=== PATIENT | female | born 1970 | race Two or more races ===

== ENCOUNTER 2024-09-13 01:57 | Inpatient (IN) | payer BC, SELFPAY ==
[2024-09-13] VITALS (8 sets, daily range): BP systolic 112–173; BP diastolic 69–95; PULSE 62–93; RESP 16–95; TEMP 36.1–36.8; O2SAT 94–99; BMI 31.9; BMI 32.5
--- NOTE | 2024-09-13 02:18 | XR_ITS ---
Examination: CT abdomen and pelvis without contrast. Coronal 3-D reconstructions. Sagittal 2-D reconstructions. Date and time of exam:September 13, 2024 0253 hrs. Comparison January 12, 2024 Indications: Onset abdominal pain today, history left abdominal pain January 2024, history kidney stones, 11 mm lower pole left renal calculus, moderate bilateral renal parenchymal scar formation on CT abdomen pelvis January 12, 2024 CTDI: vol (mGy): 12.91 DLP: (mGycm): 769 Technique: Axial images of the abdomen have been obtained, 3 mm slice thickness Intravenous contrast material has not been administered. Low dose protocols were performed. One or more of the following dose reduction techniques were used; automated exposure control, adjustment of the mA and/or KV according to patient size, use of iterative reconstruction technique. Findings: Liver is irregular in contour, no focal liver lesions Absent gallbladder Spleen not enlarged No pancreatic or adrenal mass Significant bilateral renal parenchymal scar formation No renal or ureteral calculi, no hydronephrosis Multiple abnormal fluid and air distended small bowel loops with edema surrounding some of the small bowel loops for instance axial image 116 Normal appendix No diverticulitis No pelvic mass Contracted urinary bladder Advanced degenerative disc disease L4-L5, L5-S1 Impression: Significant bilateral renal parenchymal scar formation, no hydronephrosis or ureteral calculi Small bowel obstruction pattern, consider Gastrografin small bowel series follow-up
--- NOTE | 2024-09-13 02:19 | PD.EDRME ---
Rapid Medical Screening Exam RME Arrival date/time: 09/13/24 01:57 54-year-old female past medical history of gastric bypass presents emergency department complaining of diffuse abdominal pain. Chief Complaint: Abdominal Pain Time Seen by Provider: 09/13/24 02:12 Vital signs: Vital Signs Temperature 97.7 F 09/13/24 02:06 Pulse Rate 62 09/13/24 02:06 Respiratory Rate 18 09/13/24 02:06 Blood Pressure 173/95 H 09/13/24 02:06 Pulse Oximetry (%) 97 09/13/24 02:06 Oxygen Delivery Method Room Air 09/13/24 02:06 Vital signs reviewed by provider: Yes
[2024-09-13 02:48] LABS: Collection Type, Urine Clean Catch
[2024-09-13 03:09] LABS: Bilirubin,Urine Negative (Negative); Blood,Urine Trace (Negative); Color,Urine Yellow (Lt Yel-Yel); Glucose, Urine Negative (Negative); Ketones,Urine Negative (Negative); Leukocyte Esterase,Urine Positive (Negative); Nitrite,Urine Negative (Negative); PH,Urine 5.5 (5.0-7.0); Protein,Urine 1+ (Neg - Trace); RBC,Urine 42 /hpf (0-3); Specific Gravity,Urine 1.033 (1.001-1.035); Squamous Epithelial Cell,Urine 2 /hpf (0-5); WBC,Urine 31 /hpf (0-5)
[2024-09-13 03:18] LABS: Basophils % (Auto) 0 % (0-2.5); Eosinophils # (Auto) 0.1 Thou/mm3 (0.0-0.5); Eosinophils % (Auto) 1 % (0-10); Hematocrit 40.1 % (36.0-46.0); Hemoglobin 13.4 g/dL (12.0-16.0); Immature Granulocytes % (Auto) 0 % (0-0); Immature Granulocytes Auto 0.04 Thou/mm3 (0.00-0.00); Lymphocytes # (Auto) 2.4 Thou/mm3 (1.0-4.8); Lymphocytes % (Auto) 18 % (10-50); Mean Corpuscular HGB Conc 33.4 g/dl (31.0-37.0); Mean Corpuscular Hemoglobin 30.1 pg (25.0-35.0); Mean Corpuscular Volume 90 fL (80-100); Monocytes # (Auto) 0.7 Thou/mm3 (0.0-0.8); Monocytes % (Auto) 6 % (0-12); Neutrophils # (Auto) 9.9 Thou/mm3 (1.8-7.7); Neutrophils % (Auto) 75 % (37-80); Nucleated Red Blood Cell % 0 /100 WBC (0); Platelet Count 237 Thou/mm3 (140-440); RDW Standard Deviation 42.5 fL (36.4-46.3); Red Blood Count 4.45 Miln/mm3 (4.00-5.20); White Blood Count 13.2 Thou/mm3 (3.6-11.0)
[2024-09-13 03:28] LABS: Clarity,Urine Hazy (Clear/Hazy); Culture Indicated,Urine Yes
[2024-09-13 03:32] LABS: Alanine Aminotransferase 23 U/L (10-49); Albumin, Serum 4.3 gm/dL (3.5-5.0); Albumin/Globulin Ratio 1.2 (1.2-2.2); Alkaline Phosphatase 147 U/L (46-116); Anion Gap 6 (7-16); Aspartate Amino Transferase 30 U/L (0-34); BUN/Creatinine Ratio 14 Ratio (12-20); Bilirubin,Total 0.3 mg/dL (0.3-1.2); Blood Urea Nitrogen 18 mg/dL (9-23); Calcium 10.1 mg/dL (8.3-10.6); Calcium (Corrected) 10.1 mg/dL (8.5-10.1); Carbon Dioxide 26.3 mMol/L (20.0-31.0); Chloride 107 mMol/L (98-107); Creatinine (Component) 1.3 mg/dL (0.6-1.3); Estimated Creatinine Clearance 57.8 mL/min (>60); Globulin 3.6 gm/dL (2.3-3.5); Glucose 159 mg/dL (74-106); Lipase 79 U/L (12-53); Osmolality,Calculated 282 (275-295); Potassium 4.6 mMol/L (3.4-5.1); Sodium 139 mMol/L (136-145); Total Protein 7.9 gm/dL (5.7-8.2); eGFR 49 See Note
--- NOTE | 2024-09-13 03:47 | PRELIM_ITS ---
CT scan of the abdomen and pelvis without intravenous contrast (axial sections with sagittal and tony nal reformats). September 13, 2024 at 0253 hours Clinical History: Abdominal pain. Comparison: No prior study is available for comparison. Findings:The lung bases are clear.The liver, pancreas, spleen, ki dneys and adrenals are unremarkable on this noncontrast study.Status post cholecystectomy. No biliary duct dilation.No evidence of bowel obstruction. The appendix is within normal limits.There is no mes enteric or retroperitoneal adenopathy.The urinary bladder is nondistended, limited evaluation. There is no free fluid or free air.No acute fractures. Chronic disc disease at L4-L5 and L5-S1.Scattered ai r-fluid levels in the small bowel associated with mild dilation and transition point in the right low er quadrant at the level of the mildly wall thickened small bowel loop associated with peripheral mes enteric fat stranding.Small hiatus hernia.Status post gastric bypass surgery.Impression:Findings are compatible with developing small bowel obstruction. Transition point is at the level of an inflamed s mall bowel loop, consider ischemic enteritis in the differential diagnosis.Discussion Details: Resul ts verbally communicated to : Dr. Figueroa at 03:40 AM 09/13/2024 Report Electronically Signed By: Kiah Carosn 09/13/2024 3:47:36 AM [EST]
--- NOTE | 2024-09-13 05:14 | EDNOTE_ITS ---
ED Abdominal Pain RME/HPI General Chief Complaint: Abdominal Pain Stated complaint: Abdominal Pain Time seen by provider: 09/13/24 02:12 Arrival date/time: 09/13/24 01:57 RME / HPI RME / HPI narrative: Chief complaint: 09/13/24 01:57 54-year-old female past medical history of gastric bypass presents emergency department complaining of diffuse abdominal pain. HPI: Ms. Pappas is a 54-year-old female with past medical history of gastric bypass in 2008, cholecystectomy and hysterectomy in 2011, depression, nephrolithiasis, essential hypertension, [id number] diabetes mellitus and obesity, who came in with acute onset epigastric pain with started around 6 PM on 09/12/2024. Patient had a bowel movement around 7 PM, and consumed a few snacks between 7 PM and midnight. Her pain progressively got worse over the night and prompted her to come to the ED. She is able to tolerate liquids comfortably, however not able to tolerate solid foods. She denies any nausea or episodes of vomiting, denies constipation and diarrhea. She also denies any fevers chills, no diaphoresis or systemic symptoms. She has never experienced any symptoms in the past, and has been in fairly good health since her surgeries 10 years ago. She is compliant with all her medications. Medication list: Ozempic weekly Ramipril 10 mg twice daily Trintellix daily Allergies: Compazine -angioedema Social history: Tobacco?Use:?Denies ETOH?Use:?Denies Drug?Note:?Denies Social?History?Note:?Lives?at home, independent ADLs Family history: Mother - positive for cardiac issues. Maternal grandfather had colon cancer. Related Data Home Medications ?Medication ?Instructions ?Recorded ?Confirmed ramipril 10 mg capsule 10 mg PO BID 10/15/22 05/26/24 vortioxetine 20 mg tablet 20 mg PO QDAY 10/20/22 05/26/24 (Trintellix) semaglutide 0.25 mg or 0.5 mg (2 0.25 mg subcut QWEEK 11/26/22 05/26/24 mg/3 mL) subcutaneous pen injector (Ozempic) potassium citrate 10 mEq (1,080 10 meq PO DAILY 05/02/24 05/26/24 mg) tablet,extended release Allergies Allergy/AdvReac Type Severity Reaction Status Date / Time prochlorperazine edisylate Allergy Severe THROAT Verified 05/26/24 09:54 MARTIN Review of Systems Review of Systems Narrative Review of Systems: GENERAL: Denies fevers/chills or diaphoresis. HEENT: Denies headache or visual/hearing changes. Denies nasal discharge. NEURO: Denies unusual weakness or difficulty speaking. CARDIO: Denies chest pain or palpitations. PULM: Denies SOB, coughing, or wheezing. GI: Epigastric abdominal pain, denies N/V/C/D. Reports having BMs. Patient has never had a colonoscopy URO: Denies burning/itching/pain/urinary changes. 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 PSYCH: Cooperative, pleasant mood & affect. The rest of the review of systems is otherwise negative. ED Exam Narrative Physical exam: Constitutional Alert, oriented x4, uncomfortable, obese HEENT Vision grossly intact. Patent nares. Trachea midline. Respiratory Chest normal on inspection and clear to auscultation bilaterally. Cardiovascular S1 and S2 audible, RRR. No murmurs or carotid bruit. No gross JVD. Abdominal Soft, epigastric and RUQ tenderness to palpation. BS + Genitourinary No bladder tenderness, no flank pain. Normal to palpation. Musculoskeletal Extremities tone within normal limits. No LE edema. Neurological CN II - XII grossly intact. Extremity motor and sensation grossly intact. Skin Warm, dry and intact. No apparent lesions. Psychiatric Patient has a good affect, is cooperative. Course Quality Measures VTE prophylaxis Orders Category Date Time Status NPO NOW Care 09/13/24 05:28 Active Diet NPO (NOW) Diet 09/13/24 05:[address] abdomen pelvis wo con Stat Exams 09/13/24 02:18 Taken XR small bowel single contrast Stat Exams 09/13/24 05:26 Ordered CBC Stat Lab 09/13/24 03:03 Completed CMP [Comprehensive Metabolic Panel] Stat Lab 09/13/24 03:03 Completed Lipase Stat Lab 09/13/24 03:03 Completed Urinalysis, C/S if Indicated Stat Lab 09/13/24 02:40 Completed Urine Culture Stat Lab 09/13/24 02:40 Received Ketorolac Inj [Toradol Inj] Med 09/13/24 05:26 Discontinued 15 mg IVP X1 ONE Ondansetron Inj [Zofran Inj] Med 09/13/24 05:29 Once 4 mg IV PRN ONE Sodium Chloride 0.9% 1000 ml [Ns] 1,000 ml Med 09/13/24 05:27 Active IV 125 mls/hr Vital Signs Vital signs: Vital Signs Temperature 97.7 F 09/13/24 02:06 Pulse Rate 62 09/13/24 02:06 Respiratory Rate 18 09/13/24 02:06 Blood Pressure 173/95 H 09/13/24 02:06 Pulse Oximetry (%) 97 09/13/24 02:06 Oxygen Delivery Method Room Air 09/13/24 02:06 Abdominal Pain MDM Patient data External records reviewed:: PCP records Clinical information provided by:: patient Social determinants that could affect healthcare access:: none Patient has the following chronic illnesses:: past medical history of gastric bypass in 2008, cholecystectomy and hysterectomy in 2011, nephrolithiasis, depression, essential hypertension, [id number] diabetes mellitus and obesity How is presenting disease/condition affected by chronic disease/condition?: uneffected by Evaluation data The following diagnostics were reviewed and interpreted by me:: lab results, radiology exam(s) and EKG tracing(s) Lab and/or radiology exams considered but not ordered:: CEA Interpretation Summary: Patient presented with acute epigastric abdominal pain. CT abdomen pelvis consistent with SBO. Medications / Prescriptions Medications or Prescriptions considered but not ordered:: Morphine for pain Medication administrations:: Medication Administration History Sodium Chloride (Ns) 1,000 mls @ 125 mls/hr IV .Q8H ONE Stop: 09/13/24 13:26 Ondansetron HCl (Ondansetron Inj 2 Mg/Ml Inj 2 Ml) 4 mg IV PRN ONE; Protocol Stop: 09/13/24 05:30 Discontinued Medications Ketorolac Tromethamine (Ketorolac Inj 30 Mg/Ml Vial) 15 mg IVP X1 ONE Stop: 09/13/24 05:27 Continue Consultations Consultation(s) initiated? (list below): No Consultation #1 (Physician, Specialty, Details): Pending Gen Surg consult if no resolution Diagnosis Differential diagnosis abdominal pain: abdominal pain and small bowel obstruction Most likely diagnosis given after review of the tests above:: CT abdomen pelvis consistent with SBO. Plan: XR small bowel series ordered, anticipate resolution with Gastrografin contrast. Admission Indicated Admission indicated?: indicated Admission Request Was there a request for admission?: Yes Admission Attestation Admission request attestation: Discussed case with Dr. aMta from Hospitalist service regarding admission. Discussed patients ED course, exam findings, labs, and radiology results. The Hospitalist team agrees to accept the patient for admission and further management. Disposition Plan Disposition Plan: Admit Discharge Attestation Discharge Attestation: CT abdomen pelvis consistent with SBO. Plan: XR small bowel series ordered, anticipate resolution with Gastrografin contrast. Discharge Plan Plan Patient Disposition: Admit Acute Care w/in Hospital Patient condition on transfer: Stable Prescriptions/Referrals Prescriptions/Med Rec: No Action ramipril 10 mg capsule 10 mg PO BID Trintellix 20 mg Tablet 20 mg PO QDAY Ozempic 0.25 mg or 0.5 mg (2 mg/3 mL) Pen Injector 0.25 mg SUBCUT QWEEK Rx Instructions: for 4 weeks potassium citrate 10 mEq (1,080 mg) tablet extended release 10 meq PO DAILY Referrals: Sher Chakraborty MD [Primary Care Provider] - In 1 week Problem List Clinical Impression: Small bowel obstruction Patient/Caregiver Discharge Instructions Print Language: Syriac Stand Alone Forms: Sherine Award Info., Patient Portal Info Letter
--- NOTE | 2024-09-13 05:26 | XR_ITS ---
Examination: Small bowel series with KUB Abdomen supine 3 views Exam date and time: September 13, 2024 0921 hours INDICATIONS: Abdominal pain and distention this week, small bowel obstruction pattern on CT abdomen pelvis September 13, 2024 0253 hours TECHNIQUE AND FINDINGS: AP portable supine abdomen immediate post introduction 120 cc Gastrografin Dilated small bowel loops noted AP portable supine abdomen films at 30 minutes and 1 hour demonstrate distended small bowel loops IMPRESSION: Small bowel obstruction pattern Recommend follow-up films 10:00 AM, 12 noon, 2:00 PM
[2024-09-13] MEDS: ONDANSETRON INJ 2 MG/ML INJ 2 ML 4 MG IV ×3 (05:42→13:38)
[2024-09-13] MEDS: KETOROLAC INJ 30 MG/ML VIAL 15 MG IVP (05:44)
[2024-09-13] MEDS: SODIUM CHLORIDE 0.9% 1000 ML 1,000 ML 125 ML IV (05:49)
--- NOTE | 2024-09-13 07:19 | PC.NURSE ---
RECEIVED REPORT AND ASSUMED CARE OF PATIENT. PATIENT SLEEPING BUT RESPONDS APPROPRIATELY TO NAME AND STATES PAIN IS CURRENTLY TOLERABLE.
--- NOTE | 2024-09-13 08:40 | PD.RESHP ---
Documentation for date of: 09/13/24 HPI History of Present Illness Chief complaint: Abdominal Pain for 2 days History of present illness: HPI: A 54-year-old female patient with past medical history of hypertension, diabetes mellitus, gastric bypass surgery, history of anxiety and depression, history of cholecystectomy and hysterectomy presented to the ED due to acute onset abdominal pain that started on 11 September after she ate significant amount of corn. After that patient felt bloated and she was not able to that any gas or stool however on the 12 September patient had a bowel movement stool was formed with no pain or vomiting. Patient denied any nausea or vomiting. even though the patient had a bowel movement however patient was still complaining of persistent abdominal pain located at the epigastric area 01/13 with no radiation she feels Nausous however no vomiting. Patient reported that she is passing gas this morning but no stool. Home medications: Trintellix, Ozempic, ramipril, multivitamins ED course: At the ED patient was vitally stable however her blood pressure was 178/95, labs was only significant for WBCs of 13.2, hemoglobin stable at 13, serum creatinine is 1.3 which is at her baseline apparently patient has CKD and diagnosed with EGFR of 49. Urinalysis was only significant for 14 RBCs, 31 WBCs, not complain of any urinary tract symptoms. While I am taking history from the patient patient started to experience episodes of anxiety and he was not able to any further history at this time, I prescribed the patient 1 dose of Ativan 1 mg also to take further details and subsequent time. PMH: As above Social hx: Alcohol: Denied Tobacco: Denied Illicit drugs: Denied Allergies: Prochlorperazine resulted in angioedema Review of Systems Review of Systems Systems Reviewed: All systems reviewed, normal except as documented Exam Vital Signs Temp Pulse Resp BP Pulse Ox O2 Del Method 97.7 F 62 19 144/89 H 99 Room Air 09/13/24 02:06 09/13/24 05:51 09/13/24 05:51 09/13/24 05:51 09/13/24 05:51 09/13/24 05:51 Narrative Exam GEN: AOx3, able to speak full sentences HEENT: NC/AC, oral mucosa moist, neck supple CVS: RRR, S1-S2 present, no murmurs appreciated RESP: CTAB GI: Surgical scars, soft,non distended, upper abdominal tenderness, normal bowel sounds for 1 minute MSK: able to move all 4 limbs, no lower extremity edema SKIN: warm 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 Results: Labs 09/13/24 03:03 09/13/24 03:03 Labs: Short CBC 09/13/24 Range/Units 03:03 WBC 13.2 H (3.6-11.0) Thou/mm3 Hgb 13.4 (12.0-16.0) g/dL Hct 40.1 (36.0-46.0) % Plt Count 237 (140-440) Thou/mm3 BMP 09/13/24 03:03 Sodium 139 Potassium 4.6 Chloride 107 Carbon Dioxide 26.3 BUN 18 Creatinine 1.3 Glucose 159 H Calcium 10.1 Liver Function 09/13/24 Range/Units 03:03 Total Bilirubin 0.3 (0.3-1.2) mg/dL AST 30 (0-34) U/L ALT 23 (10-49) U/L Alkaline Phosphatase 147 H (46-116) U/L Albumin 4.3 (3.5-5.0) gm/dL Urine 09/13/24 Range/Units 02:40 Urine Color Yellow (Lt Yel-Yel) Urine Clarity Hazy (Clear/Hazy) Urine pH 5.5 (5.0-7.0) Ur Specific [place] 1.033 (1.001-1.035) Urine Protein 1+ A (Neg - Trace) Urine Glucose (UA) Negative (Negative) Quality Measures Quality Measures VTE prophylaxis Medications Home Medications and Allergies Home Medications ?Medication ?Instructions ?Recorded ?Confirmed ?Type ramipril 10 mg capsule 10 mg PO BID 10/15/22 05/26/24 History vortioxetine 20 mg tablet 20 mg PO QDAY 10/20/22 05/26/24 History (Trintellix) semaglutide 0.25 mg or 0.5 mg (2 0.25 mg subcut QWEEK 11/26/22 05/26/24 History mg/3 mL) subcutaneous pen injector (Ozempic) potassium citrate 10 mEq (1,080 10 meq PO DAILY 05/02/24 05/26/24 History mg) tablet,extended release Allergies Allergy/AdvReac Type Severity Reaction Status Date / Time prochlorperazine edisylate Allergy Severe THROAT Verified 05/26/24 09:54 SWELLS Visit Medications Acetaminophen (Acetaminophen 325 Mg Tablet) 650 mg PO Q6H PRN PRN Reason: Fever >101.5 Stop: 10/13/24 08:33 Sodium Chloride (Ns) 1,000 mls @ 125 mls/hr IV .Q8H ONE Stop: 09/13/24 13:26 Last Admin: 09/13/24 05:49 Dose: 125 mls/hr Lactated Ringer's (Lactated Ringers) 1,000 mls @ 75 mls/hr IV .[id number] [facility] Stop: 10/13/24 08:44 Morphine Sulfate (Morphine Sulf Inj 10 Mg/Ml Vial) 1 mg IVP Q2H PRN PRN Reason: PAIN SCALE 7-10 (Severe Stop: 09/18/24 08:33 Ondansetron HCl (Ondansetron Inj 2 Mg/Ml Inj 2 Ml) 4 mg IV Q6H PRN; Protocol PRN Reason: NAUSEA OR VOMITING Stop: 10/13/24 08:33 Pantoprazole Sodium (Pantoprazole Inj 40 Mg Vial) 40 mg IVP QDAY [facility] Stop: 10/13/24 08:59 Discontinued Medications Ketorolac Tromethamine (Ketorolac Inj 30 Mg/Ml Vial) 15 mg IVP X1 ONE Stop: 09/13/24 05:27 Last Admin: 09/13/24 05:44 Dose: 15 mg Lorazepam (Lorazepam 2 Mg/Ml Vial) 1 mg IVP X1 ONE Stop: 09/13/24 08:32 Ondansetron HCl (Ondansetron Inj 2 Mg/Ml Inj 2 Ml) 4 mg IV X1 ONE; Protocol Stop: 09/13/24 05:30 Last Admin: 09/13/24 05:42 Dose: 4 mg Assessment & Plan Plan Summary:A 54-year-old female patient with past medical history of hypertension, diabetes mellitus, gastric bypass surgery, history of anxiety and depression, history of cholecystectomy and hysterectomy presented to the ED due to acute onset abdominal pain that started on 11 September after she ate significant amount of corn. Abdominal CT scan showed radiological picture of SBO. Assessment and plan #SBO 2/2 medication side effect versus adhesions Patient has no similar symptoms in the past, she has history of gastric bypass surgery Patient started using Ozempic for her diabetes Abdominal CT showed radiological picture of small bowel obstruction Patient vital stable, WBCs of 13,000 Plan ? Admit patient to MedSurg ? N.p.o. ? Start the patient on IV fluids 75 mL of Ringer lactate ? Zofran as needed for nausea or vomiting ? Hold oral medications on hold Ozempic as it may be one of the reasons for the small bowel obstruction rather medical picture ? Follow-up on the GI series x-rays ? Consider consulting general surgery at the patient continued to have no bowel movement ? Consider placing NG tube on low intermittent suction at the patient continued to have persistent vomiting and persistent symptoms #History of hypertension Plan ? Hold oral medications as the patient n.p.o. ? Hydralazine 10 mg every 2 hours if blood pressure goes above 180 #History of diabetes mellitus type 2 Last A1c in March was 6.8, Plan ? Repeat A1c level ? Put patient on insulin sliding scale ? Hypoglycemia protocol #History of depression and anxiety Patient does not have any suicidal ideation, she is on regular treatment Plan ?Ativan 1 mg as needed every 6 hours ? Will consider resuming her home medication antidepressant Trintellix as soon as she is able to tolerate oral feeds #History of CKD EGFR of 49, serum creatinine 1.3 Plan ? Avoid nephrotoxic medications ? Daily monitoring CMP ? Pharmacy to dose medication if needed #History of recurrent nephrolithiasis #Hematuria Plan ? Follow-up with urologist in outpatient settings Hospital Maintenance: FEN: N.p.o. DVT ppx: SCDs GI ppx: Protonix IV lines: PIV [place]: None Code status: Full code Dispo: MedSurg - Patient's plan and care discussed with my attending, Dr. Mylene Thrasher MD Internal Medicine PGY-2 Attending Provider Attestation/Addendum Patient seen and examined with resident physician Dr. Johnson. Note reviewed, agree with findings and. Patient admitted with small bowel obstruction. if Small bowel series showed no blockage will advance her diet. clinically stable. Patient seems to be better.
[2024-09-13] MEDS: LORazepam 2 MG/ML VIAL 1 MG IVP ×2 (08:45→13:59)
[2024-09-13] MEDS: PANTOPRAZOLE INJ 40 MG VIAL IVP (09:19)
[2024-09-13] MEDS: MORPHINE SULF INJ 10 MG/ML VIAL IVP ×2 (09:19→13:38)
[2024-09-13] MEDS: RINGERS LACTATED 1000 ML 1,000 ML 75 ML IV (09:20)
[2024-09-13 10:13] LABS: Glucose Estimated Average 151 mg/dL (80-131); Hemoglobin A1C 6.9 % Hgb (4.8-6.0)
--- NOTE | 2024-09-13 10:58 | PC.CC ---
Patient is a 54 year-old female who presents to the hospital for Abdomindal Pain and SBO. Nina MURILLO made ziqf-lb-pyxy contact with patient. ASW introduced self, role, and reason for visit. Patient appeared alert and oriented to self, location, and situation. Patient was pleasant and engaged in initial assessment. Patient confirmed information on demographics and reports to living with her adult children. Patient is able to ambulate independently and complete own ADLs. Patient does not use any DME at home. Patient receives primary care with provider Sher Chakraborty and pharmacy of choice is [facility]. Patient's medical decision maker is her mother, Ana Toribio . Upon discharge patient plans to return home with her adult children. 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
--- NOTE | 2024-09-13 12:00 | XR_ITS ---
Examination: Abdomen AP single view Technique: AP portable supine abdomen, single view Exam date and time: September 13, 1999 2551 hours INDICATIONS: Abdominal pain and distention this week, small bowel obstruction pattern on CT abdomen pelvis September 13, 2024 0253 hours, 4 hour delayed film post small bowel series FINDINGS: Contrast in distended small bowel loops Surgical clips upper right abdomen IMPRESSION: Small bowel obstruction pattern
[2024-09-13] MEDS: SUCRALFATE SUSP 1 GM/10 ML UDC PO (13:37)
[2024-09-13] MEDS: INSULIN LISPRO (AdmeLOG) 1 UNIT/0.01 ML UNIT SC (13:47)
--- NOTE | 2024-09-13 14:00 | XR_ITS ---
Examination: Abdomen AP single view Technique: AP portable supine abdomen, single view Exam date and time: September 13, 2024 1357 hours INDICATIONS: Abdominal pain and distention this week, small bowel obstruction pattern on CT abdomen pelvis September 2024 2:53 AM, 6 hour delayed abdomen film post small bowel series today. FINDINGS: Contrast present in distended small bowel loops IMPRESSION: Small bowel obstruction pattern, recommend continued follow-up abdomen films 4:00 PM 6:00 PM
--- NOTE | 2024-09-13 16:00 | XR_ITS ---
Examination: Abdomen AP single view Technique: AP portable supine abdomen, single view Exam date and time: September 13, 2024 1554 hours INDICATIONS: Abdominal pain and distention this week, small bowel obstruction pattern on CT abdomen pelvis at 2:53 AM this morning, 8 hour delayed film post small bowel series FINDINGS: Contrast present in distended small bowel loops, however contrast present in the right and transverse colon IMPRESSION: Negative for complete small bowel obstruction, no further small bowel films are needed
--- NOTE | 2024-09-13 16:56 | PC.NURSE ---
Patient ambulated to restroom and back in bed. No difficulties ambulating noted.
--- NOTE | 2024-09-13 17:24 | PC.NURSE ---
Report given to Jackie GAINES at Med Surg.
--- NOTE | 2024-09-13 18:31 | PC.NURSE ---
Pt arrived to unit via WC @ [id number] in no distress. Orientation provided regarding room, unit, staff and plan of care.
[2024-09-14] VITALS: BP 107/74; PULSE 69; RESP 18; TEMP 36.5; O2SAT 94
[2024-09-14 04:00] VITALS: BP 126/80; PULSE 67; RESP 18; TEMP 36.5; O2SAT 96
[2024-09-14 06:19] LABS: Basophils % (Auto) 0 % (0-2.5); Eosinophils # (Auto) 0.3 Thou/mm3 (0.0-0.5); Eosinophils % (Auto) 5 % (0-10); Hematocrit 31.9 % (36.0-46.0); Hemoglobin 10.9 g/dL (12.0-16.0); Immature Granulocytes % (Auto) 0 % (0-0); Immature Granulocytes Auto 0.01 Thou/mm3 (0.00-0.00); Lymphocytes # (Auto) 2.3 Thou/mm3 (1.0-4.8); Lymphocytes % (Auto) 34 % (10-50); Mean Corpuscular HGB Conc 34.2 g/dl (31.0-37.0); Mean Corpuscular Hemoglobin 31.1 pg (25.0-35.0); Mean Corpuscular Volume 91 fL (80-100); Monocytes # (Auto) 0.5 Thou/mm3 (0.0-0.8); Monocytes % (Auto) 8 % (0-12); Neutrophils # (Auto) 3.6 Thou/mm3 (1.8-7.7); Neutrophils % (Auto) 53 % (37-80); Nucleated Red Blood Cell % 0 /100 WBC (0); Platelet Count 204 Thou/mm3 (140-440); RDW Standard Deviation 43.6 fL (36.4-46.3); Red Blood Count 3.51 Miln/mm3 (4.00-5.20); White Blood Count 6.7 Thou/mm3 (3.6-11.0)
[2024-09-14 06:58] LABS: Alanine Aminotransferase 29 U/L (10-49); Albumin, Serum 3.6 gm/dL (3.5-5.0); Albumin/Globulin Ratio 1.4 (1.2-2.2); Alkaline Phosphatase 114 U/L (46-116); Anion Gap 6 (7-16); Aspartate Amino Transferase 39 U/L (0-34); BUN/Creatinine Ratio 20 Ratio (12-20); Blood Urea Nitrogen 20 mg/dL (9-23); Calcium 9.3 mg/dL (8.3-10.6); Calcium (Corrected) 9.6 mg/dL (8.5-10.1); Carbon Dioxide 27.6 mMol/L (20.0-31.0); Chloride 108 mMol/L (98-107); Estimated Creatinine Clearance 75.8 mL/min (>60); Globulin 2.5 gm/dL (2.3-3.5); Glucose 111 mg/dL (74-106); Osmolality,Calculated 286 (275-295); Phosphorous 4.3 mg/dL (2.4-5.1); Potassium 3.7 mMol/L (3.4-5.1); Sodium 142 mMol/L (136-145); Total Protein 6.1 gm/dL (5.7-8.2); eGFR > 60 See Note
[2024-09-14 08:00] VITALS: BP 132/92; PULSE 91; RESP 20; TEMP 36.1; O2SAT 94
[2024-09-14 08:20] VITALS: PULSE 97; RESP 18; RESP 99
[2024-09-14] MEDS: PANTOPRAZOLE INJ 40 MG VIAL IVP (08:20)
--- NOTE | 2024-09-14 08:34 | PD.RESDS ---
Planned Discharge Date 09/14/24 DS: Providers Provider Date of admission: 09/13/24 15:21 Primary care physician: Sher Chakraborty MD Admitting Provider: Sher Chakraborty MD Attending Provider on Admission: Sher Chakraborty MD Attending Provider on DC: Elizabeth Thrasher MD Discharging Provider: Elizabeth Thrasher MD DS: Diagnosis Problem List Completed Was Problem List Reviewed/Reconciled?: Yes Hospital Course Hospital Course Hospital course: A 54-year-old female patient with past medical history of gastric bypass surgery, hypertension, diabetes mellitus, history of anxiety and depression, cholecystectomy, and hysterectomy, presented to the ED due to acute abdominal pain for 2 days associated with [address] scan was done which indicated possible small intestinal obstruction. During her hospitalization patient was able to pass gas, we started the patient on Gastrografin series x-ray in which it came back negative for any complete Instanyl obstruction. 24 hours after the patient started the Gastrografin enema patient has passed stool which was formed with no blood or mucus, her abdominal pain continued to improve throughout her hospitalization. Patient today was tolerating oral feeding well with no nausea or vomiting and deemed to be clinically stable for discharge and follow-up in outpatient settings. Discharging diagnosis #Small intestinal obstruction rule out #Anxiety #History of depression #History of gastric bypass surgery #History of hypertension #History of diabetes mellitus #History of cholecystectomy #History of hysterectomy - Patient's plan and care discussed with my attending, Dr. Mylene Thrasher MD Internal Medicine PGY-2 Status at Discharge Functional status at discharge: independent ambulation Overall status at discharge: patient is back to baseline Time Spent with Patient Time attestation: Total time spent providing and/or coordinating discharge services: Time spent: Greater than 30 minutes Exam Vital Signs Temp Pulse Resp BP Pulse Ox O2 Del Method 97.7 F 67 18 126/80 96 Room Air 09/14/24 04:00 09/14/24 04:00 09/14/24 04:00 09/14/24 04:00 09/14/24 04:00 09/14/24 04:00 Narrative Exam GEN: AOx3, able to speak full sentences HEENT: NC/AC, oral mucosa moist, neck supple CVS: RRR, S1-S2 present, no murmurs appreciated RESP: CTAB GI: Surgical scars, soft,non distended, upper abdominal discomfort, normal bowel sounds MSK: able to move all 4 limbs, no lower extremity edema SKIN: warm and dry [employer]: CN II-XII and Sensation grossly intact. Discharge Plan Plan Patient Disposition: HOME (Self Care) Patient condition on transfer: Stable Care Plan Goals: Follow-up with your primary care physician within 1 week from discharge Follow-up regarding your diabetes medication In case of worsening of your symptoms. Return to the ED as soon as possible Use your medications as prescribed Prescriptions/Referrals Prescriptions/Med Rec: Continued ramipril 10 mg capsule 10 mg PO BID Trintellix 20 mg Tablet 20 mg PO QDAY Ozempic 0.25 mg or 0.5 mg (2 mg/3 mL) Pen Injector 0.25 mg SUBCUT QWEEK Rx Instructions: for 4 weeks potassium citrate 10 mEq (1,080 mg) tablet extended release 10 meq PO DAILY Referrals: Sher Chakraborty MD [Primary Care Provider] - Patient/Caregiver Discharge Instructions Discharge Activity: activity as tolerated Education Materials: Small Bowel Obstruction Print Language: Tunisian Activity Restrictions/Additional Instructions: f/u with em in 1-2 weeks Stand Alone Forms: Sherine Award Info., Patient Portal Info Letter, Work/Release Restrictions Discharge Order Discharge Orders: Discharge (Routine); Ordered 09/14/24 Ordered By: Elizabeth Thrasher Quality Discharge Quality Measures VTE prophylaxis Attestestation MD Attestation Patient seen and examined with resident physician Dr. Johnson. Note reviewed, agree with findings and recommendations.
[2024-09-14 08:35] LABS: Thyroid Stimulating Hormone 0.89 uIU/mL (0.55-4.78)
[2024-09-14 08:44] LABS: Partial Thromboplastin Time 24.5 Seconds (22.0-36.0); Prothrombin Time 10.9 Seconds (9.0-12.2)
== END 2024-09-14 09:58 | disposition home or self-care (01) | DRG 390 ==
LOC: SERX 05:47 → SERHOLD 08:53 → S3NX 09-14 06:55 → SERHOLD 09-14 06:55 → S3NX 09-14 06:55
PROVIDERS: Student in an Organized Health Care Education/Training Program; Admitting Provider Internal Medicine; Emergency Provider Emergency Medicine; PCP Internal Medicine; Visit Provider Internal Medicine
DX: K56.609 Unspecified intestinal obstruction, unspecified as to partial versus complete obstruction (principal); F41.9 Anxiety disorder, unspecified; F32.A Depression, unspecified; Z87.442 Personal history of urinary calculi; E11.22 Type 2 diabetes mellitus with diabetic chronic kidney disease; I12.9 Hypertensive chronic kidney disease with stage 1 through stage 4 chronic kidney disease, or unspecified chronic kidney disease; Z98.84 Bariatric surgery status; Z90.49 Acquired absence of other specified parts of digestive tract; Z90.710 Acquired absence of both cervix and uterus; N18.9 Chronic kidney disease, unspecified
CPT/HCPCS: 36415; 74018; 74176; 74250; 80053; 81001; 83036; 83690; 83735; 84100; 84443; 85025; 85610; 85730; 87086; J1815; J1885; J2060; J2270; J2405; J2470; J7030; J7120; Q9963; A9270

== ENCOUNTER → 2024-10-12 | Outpatient (CLI) | payer BC, SELFPAY ==
[2024-10-12 11:23] LABS: Basophils % (Auto) 1 % (0-2.5); Eosinophils # (Auto) 0.2 Thou/mm3 (0.0-0.5); Eosinophils % (Auto) 3 % (0-10); Hematocrit 37.3 % (36.0-46.0); Immature Granulocytes % (Auto) 0 % (0-0); Immature Granulocytes Auto 0.01 Thou/mm3 (0.00-0.00); Lymphocytes # (Auto) 2.2 Thou/mm3 (1.0-4.8); Lymphocytes % (Auto) 42 % (10-50); Mean Corpuscular HGB Conc 32.2 g/dl (31.0-37.0); Mean Corpuscular Hemoglobin 29.6 pg (25.0-35.0); Mean Corpuscular Volume 92 fL (80-100); Monocytes # (Auto) 0.4 Thou/mm3 (0.0-0.8); Monocytes % (Auto) 8 % (0-12); Neutrophils # (Auto) 2.4 Thou/mm3 (1.8-7.7); Neutrophils % (Auto) 45 % (37-80); Nucleated Red Blood Cell % 0 /100 WBC (0); Platelet Count 229 Thou/mm3 (140-440); RDW Standard Deviation 43.7 fL (36.4-46.3); Red Blood Count 4.05 Miln/mm3 (4.00-5.20); White Blood Count 5.2 Thou/mm3 (3.6-11.0)
[2024-10-12 11:37] LABS: Glucose Estimated Average 157 mg/dL (80-131); Hemoglobin A1C 7.1 % Hgb (4.8-6.0)
[2024-10-12 11:45] LABS: Parathyroid Hormone Intact 152.6 pg/ml (18.5-88.0)
[2024-10-12 11:49] LABS: Alanine Aminotransferase 33 U/L (10-49); Albumin, Serum 3.8 gm/dL (3.5-5.0); Albumin/Globulin Ratio 1.4 (1.2-2.2); Alkaline Phosphatase 121 U/L (46-116); Anion Gap 5 (7-16); Aspartate Amino Transferase 34 U/L (0-34); BUN/Creatinine Ratio 15 Ratio (12-20); Bilirubin,Total 0.6 mg/dL (0.3-1.2); Blood Urea Nitrogen 15 mg/dL (9-23); Calcium 9.7 mg/dL (8.3-10.6); Calcium (Corrected) 9.9 mg/dL (8.5-10.1); Carbon Dioxide 29.3 mMol/L (20.0-31.0); Cardiac Risk Estimate 2.3 RATIO (3.7-5.6); Chloride 105 mMol/L (98-107); Cholesterol 152 mg/dL (132-200); Globulin 2.8 gm/dL (2.3-3.5); Glucose 165 mg/dL (74-106); HDL Cholesterol 66 mg/dL (40-60); LDL Cholesterol,Calculated 48 mg/dL (0-130); Osmolality,Calculated 282 (275-295); Potassium 4.7 mMol/L (3.4-5.1); Sodium 139 mMol/L (136-145); Thyroid Stimulating Hormone 1.54 uIU/mL (0.55-4.78); Total Protein 6.6 gm/dL (5.7-8.2); Triglycerides 191 mg/dL (30-150); eGFR > 60 See Note
[2024-10-12 12:34] LABS: Collection Type, Urine Clean Catch
[2024-10-12 12:56] LABS: Bilirubin,Urine Negative (Negative); Blood,Urine Negative (Negative); Clarity,Urine Clear (Clear/Hazy); Color,Urine Yellow (Lt Yel-Yel); Glucose, Urine Negative (Negative); Ketones,Urine Negative (Negative); Leukocyte Esterase,Urine Negative (Negative); Nitrite,Urine Negative (Negative); Protein,Urine Trace (Neg - Trace); RBC,Urine 1 /hpf (0-3); Specific Gravity,Urine 1.017 (1.001-1.035); Squamous Epithelial Cell,Urine 1 /hpf (0-5); Urobilinogen,Urine Negative mg/dL (0.0-1.0); WBC,Urine < 1 /hpf (0-5)
== END | disposition home or self-care (01) ==
LOC: COPL 10:56
PROVIDERS: PCP Internal Medicine; Referring Provider Internal Medicine; Visit Provider Internal Medicine
DX: E11.9 Type 2 diabetes mellitus without complications (principal); I10 Essential (primary) hypertension; E78.5 Hyperlipidemia, unspecified
CPT/HCPCS: 36415; 80053; 80061; 81001; 82306; 83036; 83970; 84443; 85025

== ENCOUNTER → 2025-04-18 | Outpatient (CLI) | payer BC, SELFPAY ==
[2025-04-18 09:10] LABS: Collection Type, Urine Clean Catch
[2025-04-18 09:28] LABS: Bilirubin,Urine Negative (Negative); Blood,Urine Negative (Negative); Clarity,Urine Clear (Clear/Hazy); Color,Urine Yellow (Lt Yel-Yel); Glucose, Urine Negative (Negative); Hyaline Casts,Urine < 1 /hpf (0-1); Ketones,Urine Negative (Negative); Leukocyte Esterase,Urine Negative (Negative); Nitrite,Urine Negative (Negative); PH,Urine 6.5 (5.0-7.0); Protein,Urine Trace (Neg - Trace); RBC,Urine 7 /hpf (0-3); Specific Gravity,Urine 1.021 (1.001-1.035); Squamous Epithelial Cell,Urine 6 /hpf (0-5); Urobilinogen,Urine 2.0 mg/dL (0.0-1.0); WBC,Urine 3 /hpf (0-5)
[2025-04-18 09:37] LABS: Glucose Estimated Average 154 mg/dL (80-131); Hemoglobin A1C 7.0 % Hgb (4.8-6.0); Parathyroid Hormone Intact 178.9 pg/ml (18.5-88.0)
[2025-04-18 09:41] LABS: Follicle Stimulating Hormone 127.93 mIU/mL (See Note)
[2025-04-18 09:43] LABS: Alanine Aminotransferase 15 U/L (10-49); Albumin, Serum 4.0 gm/dL (3.5-5.0); Albumin/Globulin Ratio 1.4 (1.2-2.2); Alkaline Phosphatase 120 U/L (46-116); Anion Gap 9 (7-16); Aspartate Amino Transferase 25 U/L (0-34); BUN/Creatinine Ratio 12 Ratio (12-20); Bilirubin,Total 0.8 mg/dL (0.3-1.2); Blood Urea Nitrogen 14 mg/dL (9-23); Calcium 10.0 mg/dL (8.3-10.6); Calcium (Corrected) 10.0 mg/dL (8.5-10.1); Carbon Dioxide 27.8 mMol/L (20.0-31.0); Cardiac Risk Estimate 2.4 RATIO (3.7-5.6); Chloride 106 mMol/L (98-107); Cholesterol 146 mg/dL (132-200); Creatinine (Component) 1.2 mg/dL (0.6-1.3); Globulin 2.9 gm/dL (2.3-3.5); Glucose 142 mg/dL (74-106); HDL Cholesterol 62 mg/dL (40-60); LDL Cholesterol,Calculated 58 mg/dL (0-130); Osmolality,Calculated 287 (275-295); Potassium 3.7 mMol/L (3.4-5.1); Sodium 143 mMol/L (136-145); Total Protein 6.9 gm/dL (5.7-8.2); Triglycerides 130 mg/dL (30-150); eGFR 54 See Note
[2025-04-18 09:47] LABS: Calcium, Random Urine 13 mg/dL (2-18); Creatinine MALB Rnd Ur 236 mg/dL (30-125); Creatinine,Random Urine 236 mg/dL (30-125); Microalbumin Creat Ratio 18 mg/gCrea (<30); Microalbumin, Random Urine 43 mg/L (0-300)
[2025-04-18 09:57] LABS: Basophils # (Auto) 0.0 Thou/mm3 (0.0-0.2); Basophils % (Auto) 1 % (0-2.5); Eosinophils # (Auto) 0.1 Thou/mm3 (0.0-0.5); Eosinophils % (Auto) 1 % (0-10); Hematocrit 39.5 % (36.0-46.0); Hemoglobin 12.8 g/dL (12.0-16.0); Immature Granulocytes Auto 0.01 Thou/mm3 (0.00-0.00); Lymphocytes # (Auto) 1.8 Thou/mm3 (1.0-4.8); Lymphocytes % (Auto) 27 % (10-50); Mean Corpuscular HGB Conc 32.4 g/dl (31.0-37.0); Mean Corpuscular Hemoglobin 29.8 pg (25.0-35.0); Mean Corpuscular Volume 92 fL (80-100); Monocytes # (Auto) 0.4 Thou/mm3 (0.0-0.8); Monocytes % (Auto) 6 % (0-12); Neutrophils # (Auto) 4.3 Thou/mm3 (1.8-7.7); Neutrophils % (Auto) 65 % (37-80); Nucleated Red Blood Cell # 0.00 Thou/mm3 (0.00-0.00); Nucleated Red Blood Cell % 0 /100 WBC (0); Platelet Count 222 Thou/mm3 (140-440); RDW Standard Deviation 45.6 fL (36.4-46.3); Red Blood Count 4.30 Miln/mm3 (4.00-5.20); White Blood Count 6.6 Thou/mm3 (3.6-11.0)
[2025-05-01 06:26] LABS: Estrogen, Total, Serum* 181 pg/mL; Luteinizing Hormone* 63.0 mIU/mL; Progesterone,LC/MS* <0.1 ng/mL
== END | disposition home or self-care (01) ==
PROVIDERS: PCP Internal Medicine; Referring Provider Internal Medicine; Visit Provider Internal Medicine
DX: E11.9 Type 2 diabetes mellitus without complications (principal); I10 Essential (primary) hypertension; N20.0 Calculus of kidney
CPT/HCPCS: 36415; 80053; 80061; 81001; 82043; 82340; 82570; 82672; 83001; 83002; 83036; 83970; 84144; 85025